=== PATIENT | female | born 1945 | race Caucasian/White ===

== ENCOUNTER 2017-10-02 09:31 | Outpatient (CLI) | payer MEDICARE, BC ==
--- NOTE | 2017-10-06 11:52 | MMO ---
BILATERAL MAMMOGRAMS: DATE: 10/03/17 HISTORY: Screening mammography. COMPARISON: 08/29/14 and 09/12/16. FINDINGS: Scattered fibroglandular densities and benign-appearing calcifications are again demonstrated. Intram ammary lymph node in the right breast is stable. There is no new dominant mass or suspicious calcific ations. The study was evaluated with the assistance of computer-aided detection. IMPRESSION: BIRADS 2: Benign Finding(s) Suggest routine follow-up. POS: [facility]
== END 2017-10-02 09:32 | disposition home or self-care (01) ==
LOC: SCSMAMMO 09:31
PROVIDERS: ATTEND Internal Medicine
DX: Z12.31 Encounter for screening mammogram for malignant neoplasm of breast (principal)
CPT/HCPCS: 77067

== ENCOUNTER 2018-12-15 13:40 | Outpatient (CLI) | payer MEDICARE, BC ==
--- NOTE | 2018-12-15 15:14 | MMO ---
Bilateral MAMMO Bilat Screen [facility]. CLINICAL HISTORY: Patient is 73 years old and is seen for screening. The patient has the following family history of breast cancer: daughter, at age 45. The patient has no personal history of cancer. VIEWS: The views performed were: bilateral craniocaudal with tomosynthesis and bilateral mediolateral oblique with tomosynthesis. FILMS COMPARED: The present examination has been compared to prior imaging studies performed at [facility] on 09/05/2015, at [facility] on 10/02/2017, and at [facility] on 09/12/2016. MAMMOGRAM FINDINGS: There are scattered fibroglandular densities. There are stable benign appearing calcifications seen in both breasts. There are no suspicious masses, suspicious calcifications, or new areas of architectural distortion. IMPRESSION: THERE IS NO MAMMOGRAPHIC EVIDENCE OF MALIGNANCY. A ROUTINE FOLLOW-UP MAMMOGRAM IN 1 YEAR IS RECOMMENDED. THE RESULTS OF THIS EXAM WERE SENT TO THE PATIENT. ACR BI-RADS Category 2 - Benign finding MAMMOGRAPHY NOTE: 1. A negative mammogram report should not delay a biopsy if a dominant of clinically suspicious mass is present. 2. Approximately 10% to 15% of breast cancers are not detected by mammography. 3. Adenosis and dense breasts may obscure an underlying neoplasm.
== END 2018-12-15 13:41 | disposition home or self-care (01) ==
LOC: BICMAMMO 13:40
PROVIDERS: ATTEND Internal Medicine
DX: Z12.31 Encounter for screening mammogram for malignant neoplasm of breast (principal)
CPT/HCPCS: 77063; 77067

== ENCOUNTER 2018-12-18 11:01 | Emergency (ER) | payer MEDICARE, BC | END 2018-12-18 11:21 | disposition home or self-care (01) | LOC: SCSER 11:01 | DX: H92.01 Otalgia, right ear (principal); E03.9 Hypothyroidism, unspecified; I10 Essential (primary) hypertension; Z79.899 Other long term (current) drug therapy | CPT/HCPCS: 99282 ==

== ENCOUNTER 2018-12-26 18:05 | Emergency (ER) | payer MEDICARE, BC ==
[2018-12-26] MEDS ORDERED: Lidocaine 1% PF 5 ML VIAL ONE (18:10)
== END 2018-12-26 18:17 | disposition home or self-care (01) ==
LOC: SCSER 18:05
DX: T16.2XXA Foreign body in left ear, initial encounter (principal); F32.9 Major depressive disorder, single episode, unspecified
CPT/HCPCS: 69200; J2001